=== PATIENT | female | born 1965 | race Caucasian/White ===

== ENCOUNTER 2022-01-20 07:18 | Outpatient (CLI) | payer BC, SELFPAY ==
--- NOTE | 2022-01-20 08:43 | W.ANESCHARGE ---
Anesthesia Charges Start Date/Time Anesthesia Start Date: 01/20/22 Anesthesia Start Time: 08:05 Stop Date/Time Anesthesia Stop Date: 01/20/22 Anesthesia Stop Time: 08:41 Summary Emergency: No
== END 2022-01-20 07:19 | disposition home or self-care (01) ==
LOC: OP CLINIC 07:19
PROVIDERS: PCP Physician Assistant Medical; Visit Provider Surgery
DX: Z12.11 Encounter for screening for malignant neoplasm of colon (principal); K63.5 Polyp of colon; Z86.010 Personal history of colon polyps; Z80.0 Family history of malignant neoplasm of digestive organs
CPT/HCPCS: 00811; 45385; 88305

== ENCOUNTER 2022-02-03 11:25 | Outpatient (CLI) | payer BC, SELFPAY ==
--- NOTE | 2022-02-03 11:30 | CRLHL7_ITS ---
For Patients: As a result of the Century Cures Act, medical imaging exams and procedure reports are released immediately into your electronic medical record. You may view this report before your referring provider. If you have questions, please contact your health care provider. BILATERAL SCREENING MAMMOGRAM WITH COMPUTER-AIDED DETECTION AND TOMOSYNTHESIS TECHNIQUE: CC and MLO views were obtained. These mammographic images have been obtained using full-field digital technique. These mammographic images were interpreted with the benefit of computer-aided detection. Breast Tomosynthesis was used in this interpretation. COMPARISON FILM: 01/01/21, 01/03/20, 01/29/19. FINDINGS: There are scattered areas of fibroglandular density. IMPRESSION: There is no radiographic evidence for malignancy. ASSESSMENT: BI-RADS Category 1: Negative RECOMMENDATION: Routine screening mammogram in 1 year. Annual mammogram beginning age 40. A lay language report of this examination will be provided to the patient. Addy Prescott M.D. Diagnostic Radiologist [email or web address] ELLE/eusebio Transcribed: 1:59 p.m. PT/Dictated by: Addy Prescott MD @ 02/03/2022 12:27:00 PM (Electronically Signed)
== END 2022-02-03 11:26 | disposition home or self-care (01) ==
LOC: MAMMO 11:26
PROVIDERS: PCP Physician Assistant Medical; Visit Provider Obstetrics & Gynecology
DX: Z12.31 Encounter for screening mammogram for malignant neoplasm of breast (principal)
CPT/HCPCS: 77063; 77067

== ENCOUNTER 2023-02-08 08:34 | Outpatient (CLI) | payer BC, SELFPAY ==
--- NOTE | 2023-02-08 08:45 | CRLHL7_ITS ---
For Patients: As a result of the Cures Act, medical imaging exams and procedure reports are released immediately into your electronic medical record. You may view this report before your referring provider. If you have questions, please contact your health care provider. BILATERAL SCREENING MAMMOGRAM WITH COMPUTER-AIDED DETECTION AND TOMOSYNTHESIS TECHNIQUE: CC and MLO views were obtained. These mammographic images have been obtained using full-field digital technique. These mammographic images were interpreted with the benefit of computer-aided detection. Breast Tomosynthesis was used in this interpretation. COMPARISON FILM: 02/03/22, 01/01/21, 01/03/20. FINDINGS: There are scattered areas of fibroglandular density IMPRESSION: There is no radiographic evidence for malignancy. ASSESSMENT: BI-RADS Category 1: Negative RECOMMENDATION: Routine screening mammogram in 1 year. A lay language report of this examination will be provided to the patient. Addy Prescott M.D. Diagnostic Radiologist [email or web address] ELLE/rocky / be/Dictated by: Addy Prescott MD @ 02/08/2023 10:18:00 AM (Electronically Signed)
== END 2023-02-08 08:35 | disposition home or self-care (01) ==
LOC: MAMMO 08:35
PROVIDERS: PCP Physician Assistant Medical; Visit Provider Obstetrics & Gynecology
DX: Z12.31 Encounter for screening mammogram for malignant neoplasm of breast (principal)
CPT/HCPCS: 77063; 77067

== ENCOUNTER 2023-09-13 08:35 | Outpatient (CLI) | payer BC, SELFPAY | END 2023-09-13 08:36 | disposition home or self-care (01) | LOC: NFLDREF 14:25 | PROVIDERS: PCP Physician Assistant Medical; Referring Provider Physician Assistant Medical; Visit Provider Obstetrics & Gynecology | DX: Z13.1 Encounter for screening for diabetes mellitus (principal); Z13.6 Encounter for screening for cardiovascular disorders | CPT/HCPCS: 80061; 82947 ==

== ENCOUNTER 2024-02-12 12:45 | Outpatient (CLI) | payer BC, SELFPAY ==
--- NOTE | 2024-02-12 13:00 | CRLHL7_ITS ---
For Patients: As a result of the Cures Act, medical imaging exams and procedure reports are released immediately into your electronic medical record. You may view this report before your referring provider. If you have questions, please contact your health care provider. BILATERAL SCREENING MAMMOGRAM WITH COMPUTER-AIDED DETECTION AND TOMOSYNTHESIS TECHNIQUE: CC and MLO views were obtained. These mammographic images have been obtained using full-field digital technique. These mammographic images were interpreted with the benefit of computer-aided detection. Breast Tomosynthesis was used in this interpretation. COMPARISON FILM: 02/08/23, 02/03/22, 01/01/21. FINDINGS: There are scattered areas of fibroglandular density IMPRESSION: There is no radiographic evidence for malignancy. ASSESSMENT: BI-RADS Category 1: Negative RECOMMENDATION: Routine screening mammogram in 1 year. A lay language report of this examination will be provided to the patient. Addy Prescott M.D. Diagnostic Radiologist [email or web address] ELLE/jose raul / bM/Dictated by: Addy Prescott MD @ 02/13/2024 9:25:00 AM (Electronically Signed)
== END 2024-02-12 12:46 | disposition home or self-care (01) ==
PROVIDERS: PCP Physician Assistant Medical; Visit Provider Obstetrics & Gynecology
DX: Z12.31 Encounter for screening mammogram for malignant neoplasm of breast (principal)
CPT/HCPCS: 77063; 77067

== ENCOUNTER 2024-04-09 09:15 | Outpatient (RCR) | payer BC, SELFPAY | END 2024-05-13 15:47 | disposition home or self-care (01) | PROVIDERS: PCP Physician Assistant Medical; Visit Provider Physician Assistant Medical | DX: M25.512 Pain in left shoulder (principal); S46.812A Strain of other muscles, fascia and tendons at shoulder and upper arm level, left arm, initial encounter; Z51.89 Encounter for other specified aftercare | CPT/HCPCS: 97110; 97161 ==

== ENCOUNTER 2024-10-31 08:58 | Outpatient (CLI) | payer BC, SELFPAY ==
--- NOTE | 2024-10-31 09:15 | CRLHL7_ITS ---
For Patients: As a result of the Century Cures Act, medical imaging exams and procedure reports are released immediately into your electronic medical record. You may view this report before your referring provider. If you have questions, please contact your health care provider. EXAM: MRI OF THE LEFT SHOULDER, WITHOUT CONTRAST CLINICAL INDICATION: Chronic shoulder pain. PRIOR SURGERY: None reported. COMPARISON PLAIN FILMS: 09 April 2020. COMPARISON CROSS-SECTIONAL IMAGING STUDIES: None available at time of interpretation. TECHNICAL: Axial, sagittal oblique and coronal oblique T1, PD, PD FS and T2-weighted images. FINDINGS: GLENOHUMERAL JOINT: Effusion/Cyst: Small linear moderate-sized effusion. Minor hazy and strandy synovitis but no erosion. No paralabral or periarticular cyst or ganglion. Humeral Head Articular Cartilage: Heterogeneous T2 signal and undulating grade 2 grade 3 thinning and fissuring. Small inferior osteophyte. Glenoid Articular Cartilage: Heterogeneous signal with grade 2 to grade 3 thinning. Small central subchondral cyst. Tiny marginal osteophytes. Loose Bodies: No appreciable loose bodies. Capsule: No convincing evidence of adhesive capsulitis or capsular injury. OSSEOUS STRUCTURES: No fracture, marrow edema or marrow replacement process. CORACOACROMIAL ARCH: Acromial Morphology: Type 1 acromial morphology. No abnormal lateral or anterior downward sloping of the acromion. No os acromiale. No significant subacromial spur. Lateral acromial thickness is 5 mm. Acromiohumeral Interval: The acromiohumeral interval is adequately patent. At its narrowest, the interval measures 6 mm. No abnormal thickening of the coracoacromial ligament. Coracohumeral Interval: The coracohumeral interval is normal. At its narrowest, the coracohumeral interval measures greater than 10 mm. Coracoid index is less than 10 mm. ACROMIOCLAVICULAR JOINT REGION: AC Joint: Mild capsular hypertrophy. Minimal subchondral cysts and tiny osteophytes of the distal clavicle. No mass effect on the underlying supraspinatus. No joint space widening. Ligaments: The coracoclavicular ligaments are intact. BURSAE: Subacromial-Subdeltoid: Thin line of fluid under the acromion and proximal deltoid. Subcoracoid: No abnormal bursal edema, thickening or bursal fluid. ROTATOR CUFF TENDONS AND MUSCLES AND DELTOID: Supraspinatus: Disorganized patchy and hazy intermediate signal tendinosis without significant tearing. No edema or atrophy in the muscle. Infraspinatus: Mild patchy and strandy intermediate signal tendinosis without tear. No atrophy or edema possible. Teres Minor: No tendinosis, tendon tearing, muscle atrophy or muscle edema. Subscapularis: No tendinosis, tendon tearing, muscle atrophy or muscle edema. Deltoid: No muscle atrophy or edema. BICEPS TENDON, LONG HEAD: The long head of the biceps tendon is appropriately positioned within the bicipital groove without tendon subluxation or dislocation. The biceps mohamud mechanism is intact. The biceps anchor appears grossly intact with intermediate signal mucoid change. There is no significant tendinosis or tendon tearing. Small amount of fluid and synovitis in the proximal tendon sheath. GLENOID LABRUM: Intermediate signal mucoid change in the superior labrum. Small blunted labrum circumferentially. No linear tear. The anteroinferior labrum is intact without Bankart or Bankart-variant labral tear. OTHER FINDINGS: There is no abnormality within the suprascapular or spinoglenoid notches nor within the quadrilateral space. No axillary adenopathy or mass. IMPRESSION: 1. Moderate glenohumeral osteoarthritis with effusion and mild reactive synovitis. 2. Mild biceps tenosynovitis. 3. Minor subacromial/subdeltoid bursitis. 4. Mild AC DJD. 5. Rotator cuff tendinosis without significant tearing. Dictated by Kali Garnett MD @ 11/01/2024 2:06:06 PM (Electronically Signed)
== END 2024-10-31 08:59 | disposition home or self-care (01) ==
LOC: MRI 09:00
PROVIDERS: PCP Physician Assistant Medical; Visit Provider Physician Assistant Medical
DX: M25.512 Pain in left shoulder (principal); M19.012 Primary osteoarthritis, left shoulder; M75.52 Bursitis of left shoulder; M65.88 Other synovitis and tenosynovitis, other site; G89.29 Other chronic pain; M25.612 Stiffness of left shoulder, not elsewhere classified
CPT/HCPCS: 73221

== ENCOUNTER 2025-01-23 07:09 | Outpatient (CLI) | payer BC, SELFPAY ==
--- NOTE | 2025-01-23 08:48 | P.ANES_ITS ---
Anesthesia Charges Start Date/Time Anesthesia Start Date: 01/23/25 Anesthesia Start Time: 07:48 Stop Date/Time Anesthesia Stop Date: 01/23/25 Anesthesia Stop Time: 09:07 Coding CPT Codes CPT Codes: ZIGGY LWR INTST NDSC NOS - 31202 ([id number]) P2 - PATIENT W/MILD SYST DISEASE, QK - STRIP ROLLER 2-4 CNCRNT ANES PROC, QX - CLINICAL ATHLETIC INSTRUCTOR SVC W/ MD MED DIRECTION
--- NOTE | 2025-01-23 08:48 | W.ANESCHARGE ---
Anesthesia Charges Start Date/Time Anesthesia Start Date: 01/23/25 Anesthesia Start Time: 07:48 Stop Date/Time Anesthesia Stop Date: 01/23/25 Anesthesia Stop Time: 09:07 Coding CPT Codes CPT Codes: ZIGGY LWR INTST NDSC NOS - 43793 ([id number]) P2 - PATIENT W/MILD SYST DISEASE, QK - BASIN FINISH OPERATOR TIG WELDER 2-4 CNCRNT ANES PROC, QX - PLATFORM SUPERVISOR SVC W/ MD MED DIRECTION
--- NOTE | 2025-01-23 09:11 | P.ANES_ITS ---
Anesthesia Charges Start Date/Time Anesthesia Start Date: 01/23/25 Anesthesia Start Time: 07:48 Stop Date/Time Anesthesia Stop Date: 01/23/25 Anesthesia Stop Time: 09:07 Coding CPT Codes CPT Codes: ZIGGY GAMING INT NDSC NOS - 15530 ([id number]) P2 - PATIENT W/MILD SYST DISEASE, QX - POLE CLASSIFIER SVC W/ MD MED DIRECTION, QK - FRUIT CHECKER 2-4 CNCRNT ZIGGY PROC
--- NOTE | 2025-01-23 09:11 | W.ANESCHARGE ---
Anesthesia Charges Start Date/Time Anesthesia Start Date: 01/23/25 Anesthesia Start Time: 07:48 Stop Date/Time Anesthesia Stop Date: 01/23/25 Anesthesia Stop Time: 09:07 Coding CPT Codes CPT Codes: ZIGGY GAMING INT NDSC NOS - 22067 ([id number]) P2 - PATIENT W/MILD SYST DISEASE, QX - CERTIFIED FIRST ASSISTANT SVC W/ MD MED DIRECTION, QK - SIZING MACHINE OPERATOR 2-4 CNCRNT ZIGGY PROC
== END 2025-01-23 07:10 | disposition home or self-care (01) ==
LOC: OP CLINIC 07:09
PROVIDERS: PCP Physician Assistant Medical; Visit Provider Surgery
DX: D12.3 Benign neoplasm of transverse colon (principal); D12.4 Benign neoplasm of descending colon; Z86.0100 Personal history of colon polyps, unspecified
CPT/HCPCS: 00811; 45385; J2704